=== PATIENT | female | born 1955 | race Caucasian/White ===

== ENCOUNTER → 2021-07-14 | Outpatient (CLI) | payer OTHER ==
--- NOTE | 2021-07-14 13:16 | KCIC ---
CT SCREENING FOR CORONARY ARTERY History: Reason: HYPERLIPIDEMIA / Spl. Instructions: FATHER PASSED OF CHF / History: Technique: With retrospective electrocardiogram gating axial reconstructed noncontrast images of the chest at the level of the coronary arteries was performed. Images were post processed on workstation and calcium score calculated using the modified Agatston Janowitz protocol. Exposure: One or more of the following individualized dose reduction techniques were utilized for thi s examination: 1. Automated exposure control 2. Adjustment of the mA and/or kV according to patient size 3. Use of iterative reconstruction technique. Comparison: None Findings: Total coronary calcium score is 93.2. There is mild to moderate plaque burden and moderate cardiovascular disease risk. This is based on the calcium score of 0 of the left main coronary artery , 93.2 of the left anterior descending artery, score of 0 of the left circumflex artery and score of 0 of the right coronary artery. Noncoronary findings: No significant incidental findings. IMPRESSION: 1. Moderate cardiovascular disease risk. Calcium score 93.2. Electronically signed by: Mark Anthony Mendiola DO (07/14/2021 1:14 PM) [facility]
== END ==
LOC: KCIC CT 12:35
PROVIDERS: ATTEND Specialist
DX: E78.2 Mixed hyperlipidemia (principal)
CPT/HCPCS: 75571